=== PATIENT | male | born 1960 | race Caucasian/White ===

== ENCOUNTER 2023-12-30 08:24 | Outpatient (CLI) | payer BC, OTHER ==
[~2023-12-30 08:24] MED LIST: NO HOME MEDS
[2023-12-30] MEDS ORDERED: iohexol 300mg/ml 100ml inj. ONE (09:04)
[2023-12-30 09:09] LABS: ALBUMIN 2.6 G/DL (3.4-5.0); ANION GAP 1 (8-16); BLOOD UREA NITROGEN 23 MG/DL (7-18); BUN/CREATININE RATIO 19.8 (10.0-20.0); CALCIUM 8.4 MG/DL (8.5-10.1); CHLORIDE 105 MMOL/L (99-107); CREATININE 1.16 MG/DL (0.60-1.10); GLUCOSE 96 MG/DL (70-104); POTASSIUM 4.2 MMOL/L (3.5-5.1); SODIUM 135 MMOL/L (135-145); TOTAL CARBON DIOXIDE 28.7 MMOL/L (24-32); eGFR 64 ML/MIN
== END 2023-12-30 23:59 | disposition home or self-care (01) ==
LOC: 64 CT 08:24
PROVIDERS: ATTEND Nurse Practitioner Family
DX: R16.0 Hepatomegaly, not elsewhere classified (principal); E27.9 Disorder of adrenal gland, unspecified; R19.09 Other intra-abdominal and pelvic swelling, mass and lump
CPT/HCPCS: 36415; 74177; 80048; Q9967

== ENCOUNTER 2024-02-09 06:41 | Outpatient (CLI) | payer OTHER ==
[2024-02-09] MEDS ORDERED: GADOTERATE MEGLUMINE 7.5 MMOL/15 ML VIAL IV ONE (14:45)
== END 2024-02-09 23:59 | disposition home or self-care (01) ==
LOC: MRI02 06:41
PROVIDERS: ATTEND Nurse Practitioner Family
DX: K80.20 Calculus of gallbladder without cholecystitis without obstruction (principal); K76.89 Other specified diseases of liver; R31.29 Other microscopic hematuria; E27.9 Disorder of adrenal gland, unspecified; R63.4 Abnormal weight loss; N32.89 Other specified disorders of bladder; D64.9 Anemia, unspecified; M19.90 Unspecified osteoarthritis, unspecified site
CPT/HCPCS: 74183; A9575